=== PATIENT | male | born 1985 | race Asian ===

== ENCOUNTER 2019-02-10 11:44 | Emergency (ER) | payer OTHER ==
[~2019-02-10] VITALS: Ht 172.7 cm; Wt 79.8 kg
[2019-02-10 11:47] VITALS: Ht 172.7 cm; Wt 79.8 kg
[2019-02-10 13:51] VITALS: BP 134/74
== END 2019-02-10 13:24 | disposition home or self-care (01) ==
LOC: ED 11:44
DX: S91.111A Laceration without foreign body of right great toe without damage to nail, initial encounter (principal); W22.8XXA Striking against or struck by other objects, initial encounter; Y93.89 Activity, other specified; Y92.89 Other specified places as the place of occurrence of the external cause; Y99.8 Other external cause status
CPT/HCPCS: J2001

== ENCOUNTER 2019-02-12 09:58 | Emergency (ER) | payer OTHER ==
[~2019-02-12] VITALS: Ht 172.7 cm; Wt 80.3 kg
[2019-02-12 10:00] VITALS: BP 126/69; Ht 172.7 cm; Wt 80.3 kg
== END 2019-02-12 10:40 | disposition home or self-care (01) ==
LOC: ED 09:58
DX: S91.111D Laceration without foreign body of right great toe without damage to nail, subsequent encounter (principal); X58.XXXD Exposure to other specified factors, subsequent encounter

== ENCOUNTER 2019-02-23 15:49 | Emergency (ER) | payer OTHER ==
[2019-02-23 17:35] VITALS: BP 135/71
== END 2019-02-23 17:35 | disposition home or self-care (01) ==
LOC: ED 15:49
DX: S91.111D Laceration without foreign body of right great toe without damage to nail, subsequent encounter (principal); X58.XXXD Exposure to other specified factors, subsequent encounter

== ENCOUNTER 2019-02-27 15:16 | Emergency (ER) | payer OTHER ==
[~2019-02-27] VITALS: Ht 172.7 cm; Wt 82.1 kg
[2019-02-27 15:53] VITALS: Ht 172.7 cm; Wt 82.1 kg
[2019-02-27 17:00] VITALS: BP 127/71
== END 2019-02-27 17:00 | disposition home or self-care (01) ==
LOC: ED 15:16
DX: S91.111D Laceration without foreign body of right great toe without damage to nail, subsequent encounter (principal); X58.XXXD Exposure to other specified factors, subsequent encounter